=== PATIENT | female | born 1990 | race Caucasian/White ===

== ENCOUNTER 2017-03-14 23:26 | Emergency (ER) | payer OTHER ==
[2017-03-14 23:48] VITALS: BP 101/68; PULSE 111; TEMP 100.5; BMI 21.4
[2017-03-15] MEDS ORDERED: ACETAMINOPHEN 325 MG TABLET (FP) PO ONE (02:24)
[2017-03-15] MEDS ORDERED: ACETAMINOPHEN 325 MG TABLET (FP) ONE (02:26)
--- NOTE | 2017-03-15 02:31 | PDOC ---
History of Present Illness - General Chief Complaint: Cold Symptoms Stated Complaint: COLD SYMPTOMS Time Seen by Provider: 03/15/17 02:24 History Source: Patient Exam Limitations: No Limitations - History of Present Illness Initial Comments: CHIEF COMPLAINT: 27 y/o febrile, tachycardic female c/o sore throat, body aches , cough and fever x 4 days. HISTORY OF PRESENT ILLNESS: The patient admits it's hard to swallow. She has been taking tylenol cold and flu without relief. She did not receive the flu shot this year. Vital signs on arrival are notable for pulse of 111 secondary to temp of 100.5. REVIEW OF SYSTEMS: GENERAL/CONSTITUTIONAL: +fever. +body aches. HEAD, EYES, EARS, NOSE AND THROAT: +sore throat. No change in vision. No ear pain or discharge. CARDIOVASCULAR: No chest pain or shortness of breath. RESPIRATORY: +dry cough. No wheezing or hemoptysis. GASTROINTESTINAL: No abd pain, nausea, vomiting, diarrhea. GENITOURINARY: No dysuria, frequency, or change in urination. MUSCULOSKELETAL: No joint or muscle swelling or pain. No neck or back pain. SKIN: No rash or easy bruising. NEUROLOGIC: No headache, vertigo, loss of consciousness, or loss of sensation. PHYSICAL EXAM: GENERAL: The patient is awake, alert, and fully oriented, in no acute distress. She is non toxic but ill appearing with intermittent dry cough. HEAD: Normal with no signs of trauma. NECK: Tender anterior cervical lymphadenopathy. ENT: Pupils equal, round and reactive to light, extraocular movements intact, sclera anicteric, conjunctiva clear. 2+ erythematous tonsils with exudate b/l. No trismus. uvula midline. No soft/hard palate deformities. No petechia. LUNGS: Clear to auscultation bilaterally. Normal excursion. No respiratory distress or use of accessory muscles. CV: RRR, S1/S2, no MRG. Cap refill < 2 sec. ABDOMEN: Soft, non-distended, non-tender even to deep palpation, no hepatomegaly or splenomegaly, no masses. EXTREMITIES: Normal range of motion, no edema. NEUROLOGICAL: Normal speech, normal gait. CN II-XII grossly intact. PSYCH: Normal mood, normal affect. SKIN: Warm, dry, normal turgor, no rashes or lesions noted. Past History - Past Medical History Allergies/Adverse Reactions: Allergies Allergy/AdvReac Type Severity Reaction Status Date / Time No Known Allergies Allergy Verified 03/14/17 23:45 Home Medications: Ambulatory Orders Oseltamivir Phosphate [Tamiflu -] 75 mg PO BID #10 capsule 12/08/13 Amoxicillin - [Amoxicillin 500mg Capsule -] 500 mg PO BID #20 capsule 03/15/17 COPD: No - Suicide/Smoking/Psychosocial Hx Smoking Status: No Smoking History: Never smoked Have you smoked in the past 12 months: No Number of Cigarettes Smoked Daily: 0 Information on smoking cessation initiated: No Hx Alcohol Use: No Drug/Substance Use Hx: No Substance Use Type: None *Physical Exam - Vital Signs Last Vital Signs Temp Pulse Resp BP Pulse Ox 100.5 F H 111 H 20 101/68 99 03/14/17 23:46 03/14/17 23:46 03/14/17 23:46 03/14/17 23:46 03/14/17 23:46 Medical Decision Making - Medical Decision Making A/P: 27 y/o female with clinical strep throat based on Centor score as well as influenza. Out of Tamiflu window. Will treat strep with amox. Instructed patient to take tylenol and motrin for fever/pain, gargle with warm salt water, get plenty of rest, drink lots of fluid and return to the ER with any worsening or concerning symptoms. The patient verbalizes understanding of all instructions, has no further questions and is awaiting discharge. *DC/Admit/Observation/Transfer Diagnosis at time of Disposition: Influenza, Strep throat - Discharge Dispostion Disposition: HOME Condition at time of disposition: Fair - Prescriptions Prescriptions: Amoxicillin - [Amoxicillin 500mg Capsule -] 500 mg PO BID #20 capsule - Referrals - Patient Instructions Printed Discharge Instructions: DI for Strep Throat, DI for Influenza -- Adult Additional Instructions: Discharge Instructions: -You have the flu and strep throat -A prescription for antibiotics has been sent to your pharmacy; please take entire 10 days -Gargle with warm salt water -Drink lots of fluids and get plenty of rest -Take tylenol and motrin for fever and pain -After 3 days of taking antibiotics, throw away your toothbrush and get a new one -Return to the ER with any worsening or concerning symptoms - Post Discharge Activity Forms/Work/School Notes: Back to Work
--- NOTE | 2017-03-15 02:38 | PDOC ---
*Physical Exam - Vital Signs Last Vital Signs Temp Pulse Resp BP Pulse Ox 100.5 F H 111 H 20 101/68 99 03/14/17 23:46 03/14/17 23:46 03/14/17 23:46 03/14/17 23:46 03/14/17 23:46 ED Treatment Course - Medications Given in the ED: ED Medications Discontinued Medications Generic Name Dose Route Start Last Admin Trade Name Lindy PRN Reason Stop Dose Admin Acetaminophen 975 mg 03/15/17 02:24 03/15/17 02:30 Tylenol - PO 03/15/17 02:25 975 mg ONCE ONE Administration Medical Decision Making - Medical Decision Making 03/15/17 02:37 agree with care from ADALBERTO Prince *DC/Admit/Observation/Transfer Diagnosis at time of Disposition: Influenza, Strep throat - Discharge Dispostion Disposition: HOME Condition at time of disposition: Fair - Prescriptions Prescriptions: Amoxicillin - [Amoxicillin 500mg Capsule -] 500 mg PO BID #20 capsule - Referrals - Patient Instructions Printed Discharge Instructions: DI for Strep Throat, DI for Influenza -- Adult Additional Instructions: Discharge Instructions: -You have the flu and strep throat -A prescription for antibiotics has been sent to your pharmacy; please take entire 10 days -Gargle with warm salt water -Drink lots of fluids and get plenty of rest -Take tylenol and motrin for fever and pain -After 3 days of taking antibiotics, throw away your toothbrush and get a new one -Return to the ER with any worsening or concerning symptoms - Post Discharge Activity Forms/Work/School Notes: Back to Work
== END 2017-03-15 02:48 | disposition home or self-care (01) ==
LOC: JER 23:26
DX: J11.1 Influenza due to unidentified influenza virus with other respiratory manifestations (principal)
CPT/HCPCS: 99281-25

== ENCOUNTER 2021-03-01 11:41 | Emergency (ER) | payer OTHER ==
[2021-03-01 12:18] VITALS: BP 102/58; PULSE 56; TEMP 98.3; BMI 19.5
[2021-03-01] MEDS ORDERED: ONDANSETRON 4 MG/2 ML VIAL IVPUSH ONE (13:29)
[2021-03-01] MEDS ORDERED: SODIUM CHLORIDE 0.9% 500 ML INFUS.BAG IV ONE ×2 (13:29→15:00)
[2021-03-01] MEDS ORDERED: ONDANSETRON 4 MG/2 ML VIAL ONE (13:38)
[2021-03-01 13:54] LABS: BASO % 0.3 % (0-2.0); EOS % 0.1 % (0-4.5); HEMATOCRIT 31.1 % (32.4-45.2); HEMOGLOBIN 10.5 GM/dL (10.7-15.3); LYMPH % 15.2 % (8-40); MCH 28.4 pg (25.7-33.7); MCHC 33.7 g/dl (32.0-36.0); MEAN CELL VOLUME 84.3 fl (80-96); MEAN PLT VOLUME 8.3 fl (7.5-11.1); MONO % 4.4 % (3.8-10.2); PLATELET COUNT 204 10^3/uL (134-434); RBC 3.69 M/mm3 (3.60-5.2); RDW 15.2 % (11.6-15.6); WHITE BLOOD COUNT 6.9 K/mm3 (4.0-10.0)
[2021-03-01 13:55] LABS: EPI CELLS >36 /uL (0-25.1); HYALINE CASTS 4 /uL (0-3.1); PH,URINE 6.5 (5.0-8.0); URINE APPEARANCE CLOUDY; URINE BACTERIA 3229 /uL (0-1359); URINE BILIRUBIN NEGATIVE (NEGATIVE); URINE COLOR YELLOW; URINE GLUCOSE (UA) NEGATIVE (NEGATIVE); URINE KETONE 4+ (NEGATIVE); URINE LEUK ESTERASE TRACE (NEGATIVE); URINE NITRITE NEGATIVE (NEGATIVE); URINE PROTEIN 1+ (NEGATIVE); URINE WBC 58 /uL (0-25.8)
[2021-03-01 14:09] LABS: URINE RBC 62.6 /uL (0-23.9)
[2021-03-01 14:17] LABS: ALBUMIN 3.7 g/dl (3.4-5.0); BLOOD UREA NITROGEN 6.7 mg/dL (7-18); CALCIUM 9.5 mg/dL (8.5-10.1)
[2021-03-01 14:20] LABS: CREATININE 0.5 mg/dL (0.55-1.3)
[2021-03-01 14:22] LABS: BILIRUBIN,TOTAL 0.2 mg/dL (0.2-1); TOT PROT 7.6 g/dl (6.4-8.2)
[2021-03-01 17:34] LABS: URINE APPEARANCE CLEAR; URINE BILIRUBIN NEGATIVE (NEGATIVE); URINE COLOR YELLOW; URINE GLUCOSE (UA) NEGATIVE (NEGATIVE); URINE KETONE 3+ (NEGATIVE); URINE LEUK ESTERASE NEGATIVE (NEGATIVE); URINE NITRITE NEGATIVE (NEGATIVE); URINE PROTEIN NEGATIVE (NEGATIVE); URINE UROBILINOGEN 0.2 mg/dL (0.2-1.0)
== END 2021-03-01 18:00 | disposition home or self-care (01) ==
LOC: JER 11:41
PROC: 3E033GC Introduction of Other Therapeutic Substance into Peripheral Vein, Percutaneous Approach (ICD-10-PCS; principal; 2021-03-01)
DX: O21.0 Mild hyperemesis gravidarum (principal)
CPT/HCPCS: 36415; 80053; 81003; 85025; 87086; 99284-25

== ENCOUNTER 2024-08-07 03:42 | Emergency (ER) | payer OTHER ==
[2024-08-07 03:52] VITALS: TEMP 98.4; BMI 24.4
[2024-08-07] MEDS ORDERED: ONDANSETRON 4 MG/2 ML VIAL ONE (03:58)
[2024-08-07] MEDS: ONDANSETRON 4 MG/2 ML VIAL IVPB ONE (04:11)
[2024-08-07] MEDS: SODIUM CHLORIDE 0.9% 500 ML INFUS.BAG IV ONE (04:11)
[2024-08-07 04:15] LABS: ABSOLUTE IMMATURE GRANULOCYTES 0.03 x10^3/uL (0.0-0.031); BASOPHILS # 0.06 x10^3/uL (0.01-0.08); EOSINOPHIL % 2.3 % (0.7-5.8); EOSINOPHILS # 0.18 x10^3/uL (0.04-0.36); MCHC 31.7 g/dl (32.2-35.5); MEAN CELL VOLUME 91.5 fl (79.4-94.8); MEAN PLT VOLUME 10.4 fl (9.4-12.3); MONOCYTE # 0.68 x10^3/uL (0.24-0.86); MONOCYTE % 8.7 % (4.7-12.5); RDW 12.1 % (12.1-16.8)
[2024-08-07 04:41] LABS: URINE APPEARANCE CLEAR; URINE BILIRUBIN NEGATIVE (NEGATIVE); URINE COLOR YELLOW; URINE GLUCOSE (UA) NEGATIVE (NEGATIVE); URINE KETONE NEGATIVE (NEGATIVE); URINE LEUK ESTERASE NEGATIVE (NEGATIVE); URINE NITRITE NEGATIVE (NEGATIVE); URINE PROTEIN NEGATIVE (NEGATIVE); URINE UROBILINOGEN 0.2 mg/dL (0.2-1.0)
[2024-08-07 04:48] LABS: GLUCOSE,RANDOM 124.0 mg/dL (74-106)
[2024-08-07 04:49] LABS: CO2 26.0 mmol/L (21-32)
[2024-08-07 04:52] LABS: CREATININE 0.7 mg/dL (0.55-1.3); SGOT/AST 13.0 U/L (15-37); SGPT/ALT 16.0 U/L (13-61)
[2024-08-07 04:53] LABS: TOT PROT 7.5 g/dl (6.4-8.2)
[2024-08-07 04:55] LABS: ALK PHOS 68.0 U/L (45-117)
[2024-08-07 05:02] VITALS: BP 116/56; PULSE 80; RESP 14
[2024-08-07 05:29] LABS: HCV DIAGNOSTIC IN-HOUSE W/RFLX NON-REACTIVE (NONREACTIVE); HIV INTERPRETATION NEGATIVE (NEGATIVE)
== END 2024-08-07 05:12 | disposition home or self-care (01) ==
LOC: JER 03:42
PROC: 3E033GC Introduction of Other Therapeutic Substance into Peripheral Vein, Percutaneous Approach (ICD-10-PCS; principal; 2024-08-07)
DX: R55 Syncope and collapse (principal); R07.89 Other chest pain; R10.13 Epigastric pain
CPT/HCPCS: 36415; 71046-TC-FY; 80053; 81003; 83690; 84484; 84703; 85025; 86803; 87086; 87389; 93005; 93010; 99285-25